=== PATIENT | male | born 1960 | race Caucasian/White ===

== ENCOUNTER → 2024-08-27 12:57 | Outpatient (REF) | payer BC, SELFPAY | LOC: PAVMRI 12:57 | PROVIDERS: ATTENDING PHYSICIAN Nurse Practitioner; FAMILY PHYSICIAN Internal Medicine | DX: M54.16 Radiculopathy, lumbar region (principal) | CPT/HCPCS: 72070; 72100 ==

== ENCOUNTER → 2024-09-12 08:14 | Outpatient (REF) | payer BC, SELFPAY | LOC: MRI 08:14 | PROVIDERS: ATTENDING PHYSICIAN Nurse Practitioner | DX: M54.15 Radiculopathy, thoracolumbar region (principal) | CPT/HCPCS: 72158; A9575 ==